=== PATIENT | male | born 1995 | race Hispanic/Latino ===

== ENCOUNTER 2020-01-31 08:07 | Emergency (ER) | payer OTHER ==
[2020-01-31 08:46] LABS: Bilirubin Negative (Negative); Blood, Urine Negative (Negative); Glucose, Urine (Dipstick) Negative (Negative); Leukocyte Negative (Negative); Nitrite Negative (Negative); Protein, Urine (Dipstick) 30 mg/dL (Neg-Trace); Urobilinogen 0.2 mg/dL (Less than 2)
[2020-01-31 08:48] LABS: #Basophils 0.1 thou/uL (0.0-0.2); #Lymphocytes 2.1 thou/uL (1.20-3.40); #Monocytes 0.6 thou/uL (0.11-0.59); #Neutrophils 5.3 thou/uL (1.40-6.50); %Eosinophils 0.5 % (0.0-10.0); %Lymphocytes 25.4 % (21.0-51.0); %Monocytes 7.1 % (0.0-10.0); Clarity Hazy (Clear); Hemoglobin 16.5 g/dL (14.0-18.0); Mean Corpuscular HGB CONC 31.9 g/dL (32.0-36.0); Mean Corpuscular Hemoglobin 28.2 pg (27.0-31.0); Mean Corpuscular Volume 88.4 fL (78.0-98.0); Platelet Count 235 thou/uL (130-400); RBC Distribution Width 11.4 % (11.5-14.5); Red Blood Cell (RBC) Count 5.86 mill/uL (4.70-6.10)
[2020-01-31 08:52] LABS: Bacteria/HPF Rare-Few HPF (None Seen); RBC/HPF 0-3 HPF (0-3); Squamous Epithelial 0-3 HPF (0-3); WBC/HPF None Seen HPF (0-3)
[2020-01-31 09:03] LABS: ALT (SGPT) 30 U/L (8-55); AST (SGOT) 22 U/L (5-34); Albumin 4.5 g/dL (3.5-5.0); Alkaline Phosphatase 51 U/L (40-110); Anion Gap 14 mmol/L (10-20); BUN (Urea Nitrogen) 20 mg/dL (8.9-20.6); Bilirubin, Total 0.4 mg/dL (0.2-1.2); Calc. Creatinine Clearance 0 mL/min (70-130); Calcium 8.9 mg/dL (7.8-10.44); Carbon Dioxide 24 mmol/L (22-29); Chloride 107 mmol/L (98-107); Estimated GFR-MDRD Greater than 90; Globulin 2.7 g/dL (2.4-3.5); Glucose 101 mg/dL (70-105); Lipase 58 U/L (8-78); Potassium 4.2 mmol/L (3.5-5.1); Protein, Total 7.2 g/dL (6.0-8.3); Sodium 141 mmol/L (136-145)
--- NOTE | 2020-01-31 09:27 | CT ---
CT ABDOMEN AND PELVIS WITHOUT CONTRAST: HISTORY: Abdominal pain. FINDINGS: Absence of oral and IV contrast reduce the sensitivity of the exam, particularly for evaluation of so lid organs involved. The lung bases are unremarkable. No free air or free fluid is seen in the abdomen or pelvis. No calci fied gallstones are seen. A normal appearing appendix is present. There is a punctate calculus in the inferior pole of the left kidney. No calculi are seen in the right kidney, either ureter or the urin iggy bladder. No hydroureteronephrosis is noted on either side. No acute osseous abnormalities are not ed. IMPRESSION: Punctate, nonobstructing tiny left renal calculus. POS: OFF
== END 2020-01-31 09:30 | disposition home or self-care (01) ==
LOC: MADERS 08:07
DX: R10.9 Unspecified abdominal pain (principal); R19.7 Diarrhea, unspecified; F17.210 Nicotine dependence, cigarettes, uncomplicated
CPT/HCPCS: 36415; 74176; 80053; 81003; 81015; 83690; 85025

== ENCOUNTER 2020-08-06 10:24 | Emergency (ER) | payer OTHER ==
[2020-08-06] MEDS ORDERED: Ibuprofen 600 MG TAB ONE (10:45)
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
== END 2020-08-06 12:58 | disposition home or self-care (01) ==
LOC: MADERS 10:24
DX: S62.001A Unspecified fracture of navicular [scaphoid] bone of right wrist, initial encounter for closed fracture (principal); F17.210 Nicotine dependence, cigarettes, uncomplicated; W22.8XXA Striking against or struck by other objects, initial encounter; Y99.0 Civilian activity done for income or pay
CPT/HCPCS: 29125

== ENCOUNTER 2022-02-22 12:26 | Emergency (ER) | payer SELFPAY ==
[2022-02-22] MEDS ORDERED: Ibuprofen 800 MG TAB ONE (13:25)
== END 2022-02-22 13:44 | disposition home or self-care (01) ==
LOC: MADERS 12:26
DX: S20.211A Contusion of right front wall of thorax, initial encounter (principal); F17.210 Nicotine dependence, cigarettes, uncomplicated; W19.XXXA Unspecified fall, initial encounter